=== PATIENT | female | born 1955 | race Caucasian/White ===

== ENCOUNTER 2024-11-05 10:20 | Outpatient (AMB) | payer MEDICARE, SELFPAY ==
--- NOTE | 2024-11-05 10:21 | MHC.OFFVIS ---
Intake Visit Reasons: 3 month MS Allergies codeine (CODEINE) Allergy (Unknown, Unverified 11/05/24 10:30) NAUSEA egg (EGG) Allergy (Unknown, Unverified 11/05/24 10:30) HIVES Medication List - Last Reconciled 11/05/24 by Luisa Gaffney, EARNEST bupropion HCl XL 300 mg PO QAM diphenoxylate-atropine 2.5-0.025 mg 1 tab PO QID PRN doxepin 3 mg PO BEDTIME empagliflozin (Jardiance) 25 mg PO DAILY glimepiride 2 mg PO BID losartan 25 mg PO DAILY meloxicam 15 mg PO DAILY metformin ER 1,000 mg PO BID oxybutynin chloride ER 10 mg PO DAILY pregabalin 100 mg PO BID sertraline 100 mg PO DAILY teriflunomide 7 mg PO DAILY 90 days HPI Comments Details: She was doing so-so. Constant body aches all over, especially in back and hips. Harder to do house work and needs to take breaks, looking into [employer] services. Had mild flare up while on vacation about 2 weeks ago with diarrhea and more trouble with balance. Balance off and unsteady, 2 falls in the last 3 months, most recently while [place] the [place] without injury. Occasionally uses cane when outside home. Fatigue was about the same, but sleep at night was better with doxepin. PA for teriflunomide was approved, taking medication daily. No medication side effects. She had flare up in 06/2024 with increased body aches all over, especially in legs and feet, more fatigue, and some mild headaches. She also gets diarrhea which is how she knows she has flare, and sometimes has trouble making it to the bathroom.? Previously, was more easily fatigued and tired. Achiness all over body. Hands were not as strong and sometimes she had trouble closing her hands, tried heat and cold without significant improvement. Legs were sore. Sometimes legs had a constant achy feeling and other times had sharp, shooting pains. Balance was unsteady. A1c in 05/2023 was around 5.4. Generalized body pains. Right-sided headaches resolve with Tylenol. Lightheadedness better. RRMS stable, no new symptoms. Saw cardiology 09/2022 for episodes of lightheadedness, presyncope, and weakness x30-40 seconds, no findings. LBP with pain into R hip and thigh since 12/2022, some days worse than others. Lumbar MRI report below, had consult with Dr. Figueroa, unsure about surgery at this time. Developed right sided sciatica in 01/2021. Diarrhea at times, worse when MS acts up. Loose watery bowel movements started mid-01/2015. Mild relapse over 01/2015 with tingling over right leg/foot and slightly under left foot for about 1 month. MRI of the brain shows flair and T2 hyperintensities in the edmond-white junction as well as two periventricular lesions consistent with MS. [facility] Medical History (Updated 11/05/24 @ 11:18 by Luisa Gaffney CNP) Extrapyramidal movement disorder RLS (restless legs syndrome) Sciatica Peripheral neuropathy Diabetes mellitus Multiple sclerosis Review of Systems Const Denies chills, Denies daytime sleepiness, Reports difficulty sleeping, Reports fatigue, Denies fever(s), Denies frequent falls, Reports headache(s), Denies increased appetite, Denies poor appetite, Denies snoring, Denies weakness, Denies weight gain and Denies weight loss Eyes Denies loss of vision ENT Denies vertigo, Reports dizziness, Reports headache(s) and Denies neck pain Card Denies chest pain at rest, Denies chest pain with activity, Denies syncope, Denies leg edema, Denies palpitations, Denies dyspnea and Denies dyspnea on exertion Resp Denies cough, Denies dyspnea, Denies dyspnea on exertion and Denies snoring GI Denies abdominal pain, Denies constipation, Denies heartburn, Reports diarrhea and Denies nausea Denies urinary frequency, Denies urinary incontinence and Denies urinary urgency Musc Reports abnormal gait (balance difficulty), Reports back pain, Reports myalgias, Denies arthralgias, Denies neck pain, Reports numbness and Reports tingling Neuro Reports abnormal gait (balance difficulty), Denies vertigo, Reports dizziness, Denies syncope, Denies frequent falls, Reports headache(s), Denies lack of coordination, Denies loss of vision, Denies memory loss, Reports numbness, Denies Other visual disturbances, Denies restless legs, Denies seizure-like activity, Reports tingling, Denies paresthesias, Denies tremor(s) and Denies weakness Psych Denies anxiety, Denies depression, Denies auditory hallucinations, Denies memory loss and Denies visual hallucinations Endo Reports fatigue and Denies palpitations Physical Exam Const Other: General Appearance:? normal, in no acute distress. Heart:? S1, S2 normal, no murmurs. Lungs:? clear anteriorly and posteriorly. Musculoskeletal:? normal. Extremities:? no edema. Psych:? alert, oriented, cognitive function intact, cooperative with exam. Neuro Other: Abnormal Neurological Findings:?Generalized weakness RLE 5-/5, RUE 5-/5. Slight decrease in position sense in the right big toe. DTRs 0-1+ with absent ankle reflexes. Impaired vibration in mid tarsal level.?? Mental Status: alert and oriented X 3. Normal attention, orientation, memory, and affect. Cranial Nerves: Pupils are equal, round, and reactive to light. External ocular muscles are intact. Visual mancia are full, no ptosis. Face is symmetrical, no facial weakness or droop. Facial sensations are normal. Tongue protrudes in midline. Palate elevates symmetrically. Shoulder shrugging is normal Motor Examination: As above, otherwise normal muscle tone, bulk and strength. No atrophy or fasciculations. No drift of the extended upper extremities. DTRs are 0-1+ with absent ankle reflexes. Plantars are flexor. Sensory Exam: As above, otherwise normal light touch, temperature, pinprick, vibration, and joint-position sensations. Rhomberg sign is absent. Coordination: No ataxia. No titubation. Gait Exam: Within normal limits. Cerebellar Signs: [id number] is okay. Extrapyramidal System: No tremor, rigidity with normal facial expressions. No bradykinesia. No bradyphrenia. Normal arm swing and posture. No propulsion or retropulsion. Speech: Normal. No dysphasia or dysarthria. Results Reviewed Results Reviewed: 04/04/22 EEG- WNL 05/11/22 MRI brain with and without gustavo: no acute findings or enhancement. Stable MS burden of disease. MRI Lumbar Spine at [facility] 04/21/2023: 1. R paracentral/foraminal extrusion at L3-4 resulting in mass effect upon the descending right L4 nerve root in subarticular zone, severe right foraminal stenosis, and mass effect upon exiting right L3 nerve root in foramina 2. Right paracentral extrusion at L2-3 resulting in mass effect upon the descending right L3 nerve root in the subarticular zone 3. Bilateral facet arthropathy with ligamentum flavum thickening and diffuse disc bulge at L4-5 resulting in moderate spinal canal stenosis 4. Severe lumbar facet arthritis, most pronounced on left at L4-5 and L5-S1, and right at L3-4 Assessment & Plan Assessment & Plan (1) Multiple sclerosis: Code(s): G35 - Multiple sclerosis Category: Medical Plan: Continue teriflunomide 7mg 1 tablet daily. Continue diphenoxylate-atropine 2.5-0.025mg 1 tablet as needed four times a day as needed for diarrhea. Option for brain MRI discussed, last MRI done in 04/2022, declining at this time and would consider in the future. Option for PT discussed, has tried in the past and decling at this time. Consider using cane for additional support. (2) Peripheral neuropathy: Code(s): G62.9 - Polyneuropathy, unspecified Category: Medical Qualifiers: Peripheral neuropathy type: polyneuropathy, unspecified Qualified Code(s): G62.9 - Polyneuropathy, unspecified Plan: Increase pregabalin 150mg 1 capsule twice a day. 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 She has trouble getting lab work done because of this. She prefers oral medication.?? Meds tried: gabapentin, pregabalin Medications: New pregabalin 150 mg PO BID 60 caps 2RF 30 days Changed From diphenoxylate-atropine 2.5-0.025 mg 1 tab PO QID PRN To diphenoxylate-atropine 2.5-0.025 mg 1 tab PO QID PRN 120 tabs 5RF diarrhea 30 days Coding Level of Care Code Est Pt Level 4 (69653) Diagnoses Multiple sclerosis G35 Peripheral polyneuropathy G62.9 Peripheral neuropathy type: polyneuropathy, unspecified Lumbar radiculopathy M54.16
--- OUTSIDE RECORDS SUMMARY | 2024-11-05 11:48 | XMS_ITS | Clinical Summary ---
Author Organization [address] [facility] Address [address] [place] [address] Phone Care Team Providers Care Watch Technician Name Role Phone Emerson Rolon Primary Care Provider [phone] Allergies Active Allergy Reactions Criticality Noted Date Comments Codeine Other 11/18/2006 Egg Hives 11/18/2006 Medications teriflunomide 7 mg tablet 3 Active pregabalin (LYRICA) 75 mg capsule TAKE 1 CAPSULE BY MOUTH TWICE A DAY FOR 30 DAYS 4 Active meclizine (ANTIVERT) 25 mg tablet Take 1 Tablet by mouth 3 times daily as needed (vertigo). 2 Active glimepiride (AMARYL) 2 mg tablet Take 1 Tablet by mouth 2 times daily. 4 Active empagliflozin (Jardiance) 25 mg tablet Take 1 Tablet by mouth daily. 4 Active diphenoxylate-atr opine (LOMOTIL) 2.5-0.025 mg per tablet Take 1 Tablet by mouth 3 times daily as needed for Diarrhea. 2 Active cyanocobalamin (VITAMIN B-12) 500 mcg tablet Take by mouth daily. Active cholecalciferol (VITAMIN D-3) 25 mcg (1,000 unit) tablet Take by mouth daily. Active doxepin 3 mg tablet Take 1 tablet by mouth at bedtime. 30 tablet 5 5 Active atorvastatin (LIPITOR) 20 mg tabletIndications :Multiple sclerosis (CMS/HCC V24, CMS/HCC V28),Essential (primary) hypertension TAKE 1 TABLET BY MOUTH EVERY DAY 90 tablet 3 5 Active metoprolol succinate (TOPROL-XL) 25 mg 24 hr tablet TAKE 1 TABLET BY MOUTH EVERY DAY 90 tablet 3 5 Active omeprazole (PriLOSEC) [address] capsule TAKE 1 CAPSULE BY MOUTH EVERY DAY 90 capsule 3 5 Active alendronate (FOSAMAX) 70 mg tabletIndications :Age-related osteoporosis without current pathological fracture TAKE 1 TABLET BY MOUTH ONCE WEEKLY 12 tablet 3 5 Active metFORMIN XR (GLUCOPHAGE-XR) 500 mg 24 hr tabletIndications :Essential (primary) hypertension,Hype rlipidemia, unspecified TAKE 2 TABLETS BY MOUTH TWICE A DAY WITH MEALS 360 tablet 1 5 Active Rybelsus 14 mg tabletIndications :Type 2 diabetes mellitus with other specified complication ([facility] V24, [facility] V28) TAKE 1 TABLET BY MOUTH EVERY DAY 90 tablet 1 5 Active sertraline (ZOLOFT) 100 mg tablet TAKE 1 TABLET BY MOUTH EVERY DAY 90 tablet 1 5 Active losartan (COZAAR) 25 mg tablet TAKE 1 TABLET BY MOUTH EVERY DAY 90 tablet 1 5 Active buPROPion XL (WELLBUTRIN XL) 300 mg 24 hr tabletIndications :Fibromyalgia TAKE 1 TABLET BY MOUTH EVERY DAY IN THE MORNING 90 tablet 1 5 Active lancets 30 gauge [facility] Check blood sugar four times a day or as directed 100 each 5 Active OneTouch Ultra Test test strip Use to check BS daily 100 each 5 07/14/19 26 Active blood-glucose meter (OneTouch Ultra2 Meter) misc Use to check Bs daily 1 each 5 Active oxyBUTYnin XL (Ditropan XL) 10 mg 24 hr tablet Take 1 tablet (10 mg total) by mouth 1 (one) time each day. Do not crush, chew, or split. 90 tablet 1 5 Active diclofenac (Voltaren Arthritis Pain) 1 % topical gel Apply 2 g topically 4 (four) times a day. 150 g 1 5 Active meloxicam (MOBIC) 15 mg tablet TAKE 1 TABLET BY MOUTH EVERY DAY 30 tablet 5 Active Active Problems Problem Noted Date Diagnosed Date Severe obesity (BMI 35.0-39. 9) with comorbidity (CMS/[facility] V24, [facility] V28) 01/05/2024 Lumbar radiculopathy, acute 01/22/2023 Overview (01/05/2024): Last Assessment & Plan: Ms. Villasenor returns to our office after dissipating in physical therapy. She says that the therapy did help the pain in the leg but she still suffers with pain in low back and radiation to the right buttock. Sometimes it goes down the back of the leg. She has been taking NSAIDs without relief. She would like to go for the MRI at this time to better understand what is going on and whether or not there is an option for surgery. She would also like to continue with physical therapy as it does seem to be helping her. I will renew her therapy and order the MRI. She will follow-up with us after the imaging is complete. Right hip pain 01/22/2023 Overview (01/05/2024): Last Assessment & Plan: Ms. Villasenor describes pain in the right hip. She had reproduction of her right hip pain with hip mechanical testing. Going to send her for some x-rays of the right hip and consider a referral to orthopedics. She is seeing physiatry next week. Trochanteric bursitis of right hip 01/22/2023 Overview (01/05/2024): Last Assessment & Plan: Ms. Villasenor describes right hip pain traveling down the leg. When I palpated her right greater trochanteric bursa, she had exquisite reproduction of pain at the right hip. She is already on meloxicam. She is seeing a advertising copy writer next week. I encouraged her to talk to the advertising copy writer about the right hip tenderness and they might consider a right greater trochanteric bursa injection. Urge incontinence 12/04/2022 Osteoporosis 11/05/2022 OROZCO (dyspnea on exertion) 10/14/2022 Dizziness 10/09/2022 Abnormal echocardiogram 05/14/2022 Overview (01/05/2024): Low normal right ventricular global systolic function. Pulmonary artery systolic pressure could not be obtained. Recommend repeat echocardiogram. 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 Primary insomnia 10/29/2018 Varicose veins with pain 12/22/2017 Rectal incontinence 04/10/2016 Urinary incontinence 04/10/2016 HTN (hypertension), benign 09/19/2015 Hyperlipidemia LDL goal <70 12/08/2014 Multiple sclerosis ([facility] V24, [facility] V28) Overview (01/05/2024): Dr. English - - followup 4 months Type 2 diabetes mellitus wit h obesity ([facility] V24, [facility] V28) 11/23/2013 Snoring 06/16/2012 Overview (08/21/2024): Sleep study ordered multiple times (06/16/12, 10/18/20), not completed Diverticulitis of colon without hemorrhage 03/27 Overview (01/05/2024): Incidental finding at colonoscopy 03/27/2012. Allergic rhinitis 12/14/2011 GERD (gastroesophageal reflux disease) 2 Osteoarthritis of knee 02/25/2007 Overview (01/05/2024): R> L on xray Fibromyalgia 12/30/2006 Depressive disorder 12/29/2006 Resolved Problems Problem Noted Date Diagnosed Date Resolved Date Vaginal discharge 06/17/2022 08/21/2024 Overview (01/05/2024): Last Assessment & Plan: Wet prep collected, will treat as indicated. Genital culture ordered to speciate yeast if detected in order to guide appropriate treatment given history of recurrent yeast infections. Reviewed importance of glucose control for prevention of yeast infections. Encounters Date Type Department Care Team Description 08/20/2024 8:30 AM EDT Office Visit Adult [facility] [address] [place] [phone] Lamar Willard PA Otalgia, right ear (Primary Dx) 08/12/2024 1:00 PM EDT Consult Orthopedic Surgery - [address] [place] [phone] Alisson Tyler PA Acquired trigger finger of left middle finger (Primary Dx); Contracture of joint of finger, left; Right hand pain; Trigger little finger of right hand from Last 3 Months Immunizations Name Administration Dates Next Due Moderna SARS-CoV-2 COVID-19, mRNA, LNP-S, preservative free 02/19/2021,07/20/2020,06/22/2020 PPD Test 04/08/2007 Tdap Tetanus diptheria acell ular pertussis (Boostrix; Adacel) 7yo and older 04/13/2009 Surgical History Surgery Date Site/Laterality Comments CHOLECYSTECTOMY 02/24/1978 PROCEDURE: HISTORICAL CHOLECYSTECTOMY SECTION X 3 1978, 86, 90 PROCEDURE: SC DELIVERY ONLY TUBAL LIGATION PROCEDURE: HISTORICAL TUBAL LIGATION COLONOSCOPY 03/27/2012 PROCEDURE: SC COLONOSCOPY FLX DX W/COLLJ SPEC WHEN PFRMD; COMMENT: diverticulosis HYSTEROSCOPY 10/19/2020 PROCEDURE: SC HYSTEROSCOPY BX ENDOMETRIUM&/POLYPC W/WO D&C; COMMENT: EIN OTHER SURGICAL HISTORY 12/04/2020 PROCEDURE: SC LAPS TOTAL HYSTERECT 250 GM/< W/RMVL TUBE/OVARY; COMMENT: Robot assisted total laparoscopic hysterectomy, bilateral salpingo-oophorectomy, and bilateral sentinel lymph node biopsy with Firefly Medical History Medical History Date Comments Historical Medical DX 12/29/2006 DX:Depress ion (disease) Fibromyalgia 12/30/2006 DX:Fibromyalgia Osteoarthritis of knee 02/25/2007 DX:Osteoa rthritis of knee; COMMENT: R> L on xray Obesity, morbid ([facility] V24 , [facility] V28) DX:Obesity, morbid (HCC) GERD (gastroesophageal reflux disease) DX:GERD (gastroesophageal reflux disease) Diverticulosis of colon (wit hout mention of hemorrhage) 03/27/2012 DX:Diverticulosis of colon ( without mention of hemorrhage) Diabetes mellitus type 2, uncontrolled 11/23/2013 DX:Diabetes mellitus type 2, uncontrolled HTN (hypertension), benign 09/19/2015 DX:HT N (hypertension), benign Multiple sclerosis ([facility] V24, [facility] V28) 11/08/2014 DX:Multiple sclerosis (HCC); COMMENT: Dr. English - - followup 4 months Rectal incontinence 04/10/2016 DX:Rectal in continence Urinary incontinence 04/10/2016 DX:Urinary incontinence Family History Medical History Relation Name Comments Prostate cancer Father Arthritis Mother dx'd 50s Breast cancer Mother dx'd 50s at 64yo Relation Name Status Comments Brother Alive Daughter Alive x2 Father Prostate CA Mother dx'd 50s (Age 64) complicati ons to the flu; BrCA x2 Sister Alive Son Alive Social History Tobacco Use Types Packs/Day Years Used Date Smoking Tobacco: Former Cigarettes Smokeless Tobacco: Never Alcohol Use Standard Drinks/Week Comments Not Currently 0 (1 standard drink = 0.6 oz pur e alcohol) Housing Instability Answer Date Recorde d Are you worried that in the next 2 months you may not have stable housing? No 02/02/2024 Food Access & Nutrition Answer Date Rec orded Do you have access to a vari ety of food including fruits and vegetables? Yes 02/02/2024 Health Literacy Answer Date Recorded How often do you need to hav e someone help you when you read instructions, pamphlets, or other written material from your doctor or pharmacy? Never 02/02/2024 Caregiver: How often do you need to have someone help you when you read instructions, pamphlets, or other written material from your doctor or pharmacy? Not on file 02/02/2024 Financial Risk Answer Date Recorded How hard is it for you to pa y for the very basics like food, housing, medical care, and air conditioning / heating? Not very hard 02/02/2024 Transportation Answer Date Recorded Has the lack of transportati on kept you from meetings, work, or from getting things needed for daily living? No Has the lack of transportati on kept you from medical appointments or from getting medications? No 02/02/2024 Social Isolation Answer Date Recorded How often do you feel lonely or isolated from th ose around you? Never 02/02/2024 Food Risk Answer Date Recorded Within the past 12 months we worried whether our food would run out before we got money to buy more. Never true 02/02/2024 Within the past 12 months th e food we bought just didn't last and we didn't have money to get more. Never true 02/02/2024 Dependent Care Answer Date Recorded Do you need help finding or paying for care for your loved ones. For example, child welfare caseworker or elderly care for an older adult? No 02/02/2024 Education Answer Date Recorded Do you think completing more education or training, like finishing a GED, going to college, or learning a trade, would be helpful for you? No 02/02/2024 Employment and Income Answer Date Recor ded During the last four weeks, have you been actively looking for work? No 02/02/2024 Living Situation Answer Date Recorded What is your living situation? 1 04/04/2023 Comments No Sex and Gender Information Value Date Recorded Sex Assigned at Female 01/16/2024 11:27 AM EST Legal Sex Female 9:12 AM EST Gender Identity Not on file Sexual Orientation Not on file Obstetrics History Last Filed Vital Signs Vital Sign Reading Time Taken Comments Blood Pressure 126/76 08/20/2024 8:27 AM EDT Pulse 68 08/20/2024 8:27 AM EDT Temperature 35.8 C (96.4 F) 08/20/2024 8:27 AM EDT Respiratory Rate 16 08/20/2024 8:27 AM EDT Oxygen Saturation 94% 08/20/2024 8:27 AM EDT Inhaled Oxygen Concentration - - Weight 108 kg (239 lb) 08/20/2024 8:27 AM EDT Height 166.4 cm (5' 5.5 ) 08/20/2024 8:27 AM EDT Body Mass Index 39.17 08/20/2024 8:27 AM EDT Plan of Treatment Upcoming Encounters Date Type Department Care Team (Late st Contact Info) Description 01/18/2025 12:00 PM EST Office Visit [facility] [address] [phone] Emerson Rolon PA [address] [place] [phone] Health Maintenance Due Date Last Done Comments Pneumococcal Vaccine: 50+ Years (1 of 2 - PCV) 1976 Zoster Vaccines (1 of 2) 04/25/2007 RSV Immunization Adult Patients (1 - Risk 60-74 years 1-dose series) 2017 DTaP,Tdap,and Td Vaccines (2 - Td or Tdap) 04/13/2019 04/13/2009 Breast Cancer Screening 11/17/2020 11/18/19 19, 11/05/2018, 10/31/2018 Medicare Annual Wellness Visit 02/02/2022 Colorectal Cancer Screening: Colonoscopy 03/30/2022 03/30/2012 Depression Screening 02/25/2024 11/18/2023 Diabetes: Blood Sugar Contro l Test (HGBA1C) 08/06/2024 02/06/2024, 04/11/2023 COVID-19 Vaccine (2024-2 6 season) 2024 02/19/2021, 07/20/2020, 06/22/2020 Influenza Vaccine (#1) 2024 Diabetes: Annual Foot Exam 11/17/2024 11/18/2023 Falls Risk Assessment 02/01/2025 02/02/2024 , 02/02/2024 Social Influencers of Health Screening 02/01/2025 02/02/2024 Diabetes: Annual Urine Albumin-Creatinine Ratio (uACR) 02/05/2025 02/06/2024, 05/08/2023 Diabetes: Annual GFR (Glomerular Filtration Rate) 02/05/2025 02/06/2024, 04/11/2023 Hypertension/CHF/CAD Annual BMP Blood Test 02/05/2025 02/06/2024, 04/11/2023 Diabetes: Annual Retina Eye Exam 05/10/2025 05/10/2024 Cholesterol Screening (Lipid Panel) 02/05/2029 02/06/2024, 04/11/2023 Osteoporosis Screening (Bone Density Screening) 07/02/2032 07/02/2022 Hepatitis C Screening Completed 12/16/2012 HIB Vaccines Aged Out No longer eligi ble based on patient's age to complete this topic HPV Vaccines Aged Out No longer eligi ble based on patient's age to complete this topic Hepatitis A Vaccines Aged Out No long er eligible based on patient's age to complete this topic Hepatitis B Vaccines Aged Out No long er eligible based on patient's age to complete this topic IPV Vaccines Aged Out No longer eligi ble based on patient's age to complete this topic MMR Vaccines Aged Out No longer eligi ble based on patient's age to complete this topic Meningococcal ACWY Vaccine Aged Out N o longer eligible based on patient's age to complete this topic Meningococcal B Vaccine Aged Out No l onger eligible based on patient's age to complete this topic RSV Immunization Patients Under 20 months Aged Out No longer eligible b ased on patient's age to complete this topic Varicella Vaccines Aged Out No longer eligible based on patient's age to complete this topic Procedures Procedure Name Priority Date/Time Associated Diagnosis Comments EXTERNAL DIABETIC RETINA EYE EXAM 05/10/2024 MICROALBUMIN CREATININE URINE RATIO Routine 02/06/2024 12:15 PM EST Fibromyalgia Urge incontinence Hyperlipidemia Type 2 diabetes mellitus with obesity ([facility] V24, [facility] V28) Osteoporosis Primary insomnia Dizziness Diverticulitis of colon without hemorrhage OROZCO (dyspnea on exertion) Right hip pain Abnormality of ascending aorta Carotid artery calcification, bilateral HTN (hypertension), benign GERD (gastroesophageal reflux disease) Urinary incontinence COMPREHENSIVE METABOLIC PANEL Routine 02/06/2024 11:57 AM EST Fibromyalgia Urge incontinence Hyperlipidemia Type 2 diabetes mellitus with obesity ([facility] V24, [facility] V28) Osteoporosis Primary insomnia Dizziness Diverticulitis of colon without hemorrhage OROZCO (dyspnea on exertion) Right hip pain Abnormality of ascending aorta Carotid artery calcification, bilateral HTN (hypertension), benign GERD (gastroesophageal reflux disease) Urinary incontinence HEMOGLOBIN A1C Routine 02/06/2024 11:57 AM EST Fibromyalgia Urge incontinence Hyperlipidemia Type 2 diabetes mellitus with obesity ([facility] V24, [facility] V28) Osteoporosis Primary insomnia Dizziness Diverticulitis of colon without hemorrhage OROZCO (dyspnea on exertion) Right hip pain Abnormality of ascending aorta Carotid artery calcification, bilateral HTN (hypertension), benign GERD (gastroesophageal reflux disease) Urinary incontinence LIPID PANEL WITH REFLEX TO DIRECT LDL Routine 02/06/2024 11:57 AM EST Fibromyalgia Urge incontinence Hyperlipidemia Type 2 diabetes mellitus with obesity ([facility] V24, [facility] V28) Osteoporosis Primary insomnia Dizziness Diverticulitis of colon without hemorrhage OROZCO (dyspnea on exertion) Right hip pain Abnormality of ascending aorta Carotid artery calcification, bilateral HTN (hypertension), benign GERD (gastroesophageal reflux disease) Urinary incontinence DEPRESSION SCREENING Routine 11/18/2023 DXA BONE DENSITY STUDY 1+ SITS AXIAL SKEL Routine 07/02/2022 9:26 AM EDT Encounter for gynecological examination (general) (routine) without abnormal findings DX MAMMO INCL CAD UNI Routine 11/17/2018 10:20 AM EDT Other abnormal and inconclusive findings on diagnostic imaging of breast HEPATITIS C SCREENING Routine 12/16/2012 COLONOSCOPY Routine 03/30/2012 from Last 3 Months or Most Recently Relevant to Health Maintenance Results * External Diabetic Retina Eye Exam Report (05/10/2024) Anatomical Region Laterality Modality Ultrasound us Provider [facility] PROCEDURES Final Result * Microalbumin creatinine urine ratio (02/06/2024 12:15 PM EST) Creatinine, Urine 74.0 mg/dL LAB CHEMISTRY METHOD 02/06/2024 4:52 PM EST [facility] Microalb, Ur 8.6 0.0 - 29.0 mg/L LAB CHEMISTRY METHOD 02/06/2024 4:52 PM EST [facility] Microalb/Creat Ratio 12 <30 mg/g creat LAB CHEMISTRY METHOD 02/06/2024 4:52 PM EST [facility] Urine Urine specimen obtained by clean catch procedure / Unknown Non-blood Collection / Unknown 02/06/2024 12:15 PM EST 02/06/2024 12:15 PM EST us Martha Rico PA LAB URINE ORDERABLES Final Resul t [facility] [address] [place] [address], [place] [phone] * (ABNORMAL) Lipid panel with reflex to direct LDL (02/06/2024 11:57 AM EST) Cholesterol 114 0 - 200 mg/dL LAB CHEMISTRY METHOD 02/06/2024 4:25 PM EST [facility] Triglycerides 136 0 - 150 mg/dL LAB CHEMISTRY METHOD 02/06/2024 4:25 PM [facility] HDL 39(L) >=40 mg/dL LAB CHEMISTRY METHOD 02/06/2024 4:25 PM EST [facility] LDL Calculated 48 0 - 100 mg/dL LAB CHEMISTRY METHOD 02/06/2024 4:25 PM [facility] VLDL Cholesterol Alexandre 27.2 mg/dL LAB CHEMISTRY METHOD 02/06/2024 4:25 PM EST [facility] Non HDL Chol. (LDL+VLDL) 75 <145 mg/dL LAB CHEMISTRY METHOD 02/06/2024 4:25 PM EST [facility] Chol/HDL Ratio 2.9 0.0 - 4.4 LAB CHEMISTRY METHOD 02/06/2024 4:25 PM [facility] Blood Venous blood specimen / Unknown Venipuncture / Unknown 02/06/2024 11:57 AM EST 02/06/2024 11:57 AM EST us Martha Rico PA LAB BLOOD ORDERABLES Final Resul t Performing Organization Address City/[facility]/ZIP Co de Phone Number [facility] [address] [place] [address], [place] [phone] * (ABNORMAL) Hemoglobin A1c (02/06/2024 11:57 AM EST) Pathologist [facility] Hemoglobin A1C 6.8(H) <6.5 % LAB CHEMISTRY METHOD 02/06/2024 8:45 PM EST [facility] Mean Bld Glu Estim. 148 mg/dL LAB CHEMISTRY METHOD 02/06/2024 8:45 PM [facility] Blood Venous blood specimen / Unknown Venipuncture / Unknown 02/06/2024 11:57 AM EST 02/06/2024 11:57 AM EST us Martha Rico PA LAB BLOOD ORDERABLES Final Resul t Performing Organization Address [facility]/ZIP Co de Phone Number [facility] [address] [place] [address], [place] [phone] * (ABNORMAL) Comprehensive metabolic panel (02/06/2024 11:57 AM EST) [facility] Sodium 141 133 - 145 mmol/L LAB CHEMISTRY METHOD 02/06/2024 4:25 PM [facility] Potassium 4.4 3.5 - 5.5 mmol/L LAB CHEMISTRY METHOD 02/06/2024 4:25 PM [facility] Chloride 107 96 - 110 mmol/L LAB CHEMISTRY METHOD 02/06/2024 4:25 PM [facility] CO2 27 21 - 32 mmol/L LAB CHEMISTRY METHOD 02/06/2024 4:25 PM [facility] Anion Gap 7 3 - 11 LAB CHEMISTRY METHOD 02/06/2024 4:25 PM [facility] Glucose 150(H) 70 - 100 mg/dL LAB CHEMISTRY METHOD 02/06/2024 4:25 PM [facility] BUN 23 5 - 25 mg/dL LAB CHEMISTRY METHOD 02/06/2024 4:25 PM [facility] Creatinine 0.89 0.50 - 1.10 mg/dL LAB CHEMISTRY METHOD 02/06/2024 4:25 PM [facility] eGFR 72 >=60 mL/min/1. 73m2 LAB CHEMISTRY METHOD 02/06/2024 4:25 PM [facility] Comment:Calculation based on the Chronic Kidney Disease Epidemiology Collaboration (CKD-EPI) equation refit without adjustment for race. BUN/Creatinine Ratio 25.8 LAB CHEMISTRY METHOD 02/06/2024 4:25 PM [facility] Calcium 9.3 8.5 - 10.5 mg/dL LAB CHEMISTRY METHOD 02/06/2024 4:25 PM [facility] AST (SGOT) 17 10 - 42 unit/L LAB CHEMISTRY METHOD 02/06/2024 4:25 PM [facility] ALT (SGPT) 22 10 - 60 unit/L LAB CHEMISTRY METHOD 02/06/2024 4:25 PM [facility] Alkaline Phosphatase 111 42 - 121 unit/L LAB CHEMISTRY METHOD 02/06/2024 4:25 PM [facility] Total Protein 7.1 6.0 - 8.0 g/dL LAB CHEMISTRY METHOD 02/06/2024 4:25 PM [facility] Albumin 3.8 3.2 - 5.0 g/dL LAB CHEMISTRY METHOD 02/06/2024 4:25 PM [facility] Total Bilirubin 0.2 0.0 - 1.4 mg/dL LAB CHEMISTRY METHOD 02/06/2024 4:25 PM [facility] Blood Venous blood specimen / Unknown Venipuncture / Unknown 02/06/2024 11:57 AM EST 02/06/2024 11:57 AM EST us Martha Jacky WILLIS LAB BLOOD ORDERABLES Final Resul t [facility] [address] [place] [address], * Depression Screening (11/18/2023) Depression Screening Abstracted us Historical Provider HEALTH MAINTENANCE Final Result * DXA BONE DENSITY STUDY 1+ SITS AXIAL SKEL (07/02/2022 9:26 AM EDT) Anatomical Region Laterality Modality Bone Densitometr y 06/17/2022 11:5 3 AM EDT Narrative 07/02/2022 2:43 PM EDT BONE DENSITY (DEXA) Lumbar Spine T-score is -1.2. (SD relative to 20-29 y/o adult) Z-score is 0.6. (SD relative to age matched peers) This is considered osteopenia by WHO criteria. Left Hip T-score is -3.1. Z-score is -1.6. This is considered osteoporosis by WHO criteria. IMPRESSION: Patient's considered to have osteoporosis by WHO criteria. The [facility] Department of Internal Medicine recommends using National Osteoporosis Foundation (NOF) guidelines in treatment decisions related to osteoporosis. NOF guidelines suggest considering treatment for postmenopausal women and men aged 50 or older presenting with the following: History of hip or vertebral fracture. T-score = -2.5 (DXA) at the femoral neck, total hip, or spine, after appropriate evaluation to exclude secondary causes. Low bone mass (T-score between -1.0 and -2.5 at the femoral neck or spine) AND a 10-year probability of a hip fracture = 3% OR a 10-year probability of a major osteoporosis-related fracture = 20% based on the [place]-adapted WHO algorithm Please note that all treatment decisions require clinical judgment and consideration of individual patient factors, including patient preferences, co-morbidities, previous drug use, risk factors not captured in the FRAX model (e.g., frailty, falls, vitamin D deficiency, increased bone turnover, interval significant decline in bone density) and possible under- or over-estimation of fracture risk by FRAX. Optional alternative screening schedule based on lainey Del Toro., [facility] March 14, 2011 for patients with osteopenia (based on hip BMD T-score) is as follows: * advanced osteopenia (T scores -2.00 to -2.49), BMD testing every year * moderate osteopenia (T scores -1.50 to -1.99), BMD testing every 5 years mild osteopenia or normal BMD (T scores -1.50 and higher), BMD testing every 15 years Procedure Note Bryanna Weinstein MD - 04/01/2023 BONE DENSITY (DEXA) Lumbar Spine T-score is -1.2. (SD relative to 20-29 y/o adult) Z-score is 0.6. (SD relative to age matched peers) This is considered osteopenia by WHO criteria. Left Hip T-score is -3.1. Z-score is -1.6. This is considered osteoporosis by WHO criteria. IMPRESSION: Patient's considered to have osteoporosis by WHO criteria. The [facility] Department of Internal Medicine recommendsusing National Osteoporosis Foundation (NOF) guidelines in treatment decisions related toosteoporosis. NOF guidelines suggest considering treatment for postmenopausal women and menaged 50 or older presenting with the following: History of hip or vertebral fracture. T-score = -2.5 (DXA) at the femoral neck, total hip, or spine, afterappropriate evaluation to exclude secondary causes. Low bone mass (T-score between -1.0 and -2.5 at the femoral neck or spine)AND a 10-year probability of a hip fracture = 3% OR a 10-year probability of a majorosteoporosis-related fracture = 20% based on the [place]-adapted WHO algorithm Please note that all treatment decisions require clinical judgment andconsideration of individual patient factors, including patient preferences, co- morbidities,previous drug use, risk factors not captured in the FRAX model (e.g., frailty, falls, vitaminD deficiency, increased bone turnover, interval significant decline in bone density) andpossible under- or over-estimation of fracture risk by FRAX. Optional alternative screening schedule based on lainey Del Toro., [facility]Jan2011 for patients with osteopenia (based on hip BMD T-score) is as follows: * advanced osteopenia (T scores -2.00 to -2.49), BMD testing every year * moderate osteopenia (T scores -1.50 to -1.99), BMD testing every 5years mild osteopenia or normal BMD (T scores -1.50 and higher), BMD testingevery 15 years us Bhupinder Guan DO IMG DXA PROCEDURES Final Resu lt * DX MAMMO INCL CAD UNI (11/17/2018 10:20 AM EDT) Anatomical Region Laterality Modality Mammography 11/05/2018 2:01 PM EDT Narrative 11/17/2018 10:28 AM EDT 2 view digital mammogram right breast for clip placement: See combined report with ultrasound and core biopsy and clip placement of the same day. Procedure Note Bryanna Weinstein - 02/12/2022 2 view digital mammogram right breast for clip placement: See combinedreport with ultrasound and core biopsy and clip placement of the same day. Emerson WLILIS IMG BI PROCEDURES Final R esult * Hepatitis C Screening (12/16/2012) Pathologist formerly [facility] Hepatitis C Screening Abstracted Result [facility] Historical Provider HEALTH MAINTENANCE Final Result * Colonoscopy (03/30/2012) Pathologist formerly [facility] Colonoscopy No Interpretation , Abstracted Anatomical Region Laterality Modality Other Historical Provider HEALTH MAINTENANCE Final Result from Last 3 Months or Most Recently Relevant to Health Maintenance Insurance [employer] MEDICARE ADVANTAGE [place]ICA[place] Care Teams Watch Technician Relationship Specialty Start Date End Date Emerson Rolon PA [address] [place] [address] PCP - General Internal Medicine 12/01/19
== END 2024-11-05 11:02 | disposition home or self-care (01) ==
PROVIDERS: PCP Physician Assistant Medical; Referring Provider Internal Medicine; Visit Provider Registered Nurse
DX: G35 Multiple sclerosis (principal); G62.9 Polyneuropathy, unspecified; M54.16 Radiculopathy, lumbar region
CPT/HCPCS: 99214

== ENCOUNTER → 2024-11-05 10:20 | Outpatient (BNVA) | payer MEDICARE, SELFPAY | PROVIDERS: PCP Physician Assistant Medical; Referring Provider Internal Medicine; Visit Provider Registered Nurse | DX: G35 Multiple sclerosis (principal); M54.16 Radiculopathy, lumbar region; G62.9 Polyneuropathy, unspecified | CPT/HCPCS: 99212 ==